=== PATIENT | female | born 1970 | race African-American/Black ===

== ENCOUNTER 2019-05-13 08:27 | Emergency (ER) | payer BC ==
[2019-05-13 08:37] VITALS: BP 108/63; PULSE 76; TEMP 97.4; BMI 26.5
--- NOTE | 2019-05-13 10:02 | PDOC ---
History of Present Illness - General History Source: Patient - History of Present Illness Timing/Duration: reports: getting worse Abdominal Pain Onset Location: reports: RUQ Pain Radiation: reports: flank <Saadia Yee - Last Filed: 05/13/19 12:30> <Mark Anthony Weinstein - Last Filed: 05/13/19 16:09> - General Chief Complaint: Pain Stated Complaint: ABD. PAIN Time Seen by Provider: 05/13/19 09:11 Past History - Psycho Social/Smoking Cessation Hx Smoking History: Never smoked Hx Alcohol Use: No Drug/Substance Use Hx: No <Saadia Yee - Last Filed: 05/13/19 12:30> Review of Systems - Review of Systems Constitutional: No: Chills, Fever ABD/GI: Yes: Nausea. No: Diarrhea, Vomiting : Yes: Flank Pain. No: Burning, Dysuria, Discharge, Hematuria <Saadia Yee - Last Filed: 05/13/19 12:30> *Physical Exam - Vital Signs Last Vital Signs Temp Pulse Resp BP Pulse Ox 97.4 F L 76 17 108/63 100 05/13/19 08:33 05/13/19 08:33 05/13/19 08:33 05/13/19 08:33 05/13/19 08:33 - Physical Exam General Appearance: Yes: Appropriately Dressed. No: Apparent Distress HEENT: positive: Normal Voice Neck: positive: Supple Respiratory/Chest: negative: Respiratory Distress Gastrointestinal/Abdominal: positive: Tender (minimal poorly localized ttp to R abd, neg murpheys, neg CVAT), Soft Musculoskeletal: negative: Normal Inspection Integumentary: positive: Dry, Warm Neurologic: positive: Fully Oriented, Alert, Normal Mood/Affect <Saadia Yee - Last Filed: 05/13/19 12:30> - Vital Signs Last Vital Signs Temp Pulse Resp BP Pulse Ox 97.4 F L 76 17 108/63 100 05/13/19 08:33 05/13/19 08:33 05/13/19 08:33 05/13/19 08:33 05/13/19 08:33 <Mark Anthony Weinstein - Last Filed: 05/13/19 16:09> ED Treatment Course - LABORATORY CBC & Chemistry Diagram: 05/13/19 10:30 05/13/19 10:30 <Saadia Yee - Last Filed: 05/13/19 12:30> - LABORATORY CBC & Chemistry Diagram: 05/13/19 10:30 05/13/19 10:30 - ADDITIONAL ORDERS Additional order review: Laboratory Results 05/13/19 05/13/19 05/13/19 11:29 10:30 10:30 Sodium 141 Potassium 4.0 Chloride 110 H Carbon Dioxide 25 Anion Gap 6 L BUN 10.7 Creatinine 0.8 Est GFR (CKD-EPI)AfAm 101.75 Est GFR (CKD-EPI)NonAf 87.79 Random Glucose 111 H Calcium 8.6 Total Bilirubin 0.3 AST 13 L ALT 16 Alkaline Phosphatase 77 Total Protein 7.1 Albumin 3.4 Lipase 71 L Serum , Qual Negative Urine Color Yellow Urine Appearance Clear Urine pH 6.5 Ur Specific [place] 1.032 Urine Protein Negative Urine Glucose (UA) Negative Urine Ketones Negative Urine Blood Negative Urine Nitrite Negative Urine Bilirubin Negative Urine Urobilinogen 0.2 Ur Leukocyte Esterase Negative 05/13/19 10:30 RBC 4.46 MCV 74.8 L MCHC 33.0 RDW 17.7 H MPV 8.1 Neutrophils % 48.0 Lymphocytes % 41.2 H Monocytes % 8.3 Eosinophils % 2.0 Basophils % 0.5 <Mark Anthony Weinstein - Last Filed: 05/13/19 16:09> Medical Decision Making - Medical Decision Making 05/13/19 09:43 48 yo F, pre-DM, not on meds, p/w RUQ pain , r/t back x 2 weeks , worse 3 days ago, constant. No a/w food or excessive belching. Reports nausea, no vomiting, change in bowel movements fever, chills, dysuria or hematuria. Possible history of kidney stones in the past per patient. No history of gallstones. No history of similar pain see exam Biliary colic vs stone, less likely uti/pyelo, gastritis, pancreatitis or appy Exam remarkable for poorly localized tenderness to right side of abdomen -pain control -labs -US 05/13/19 12:30 Labs, UA and ultrasound unremarkable. No significant pain at this time and not requiring pain meds in ED. Will dc with PMD follow-up <Saadia Yee - Last Filed: 05/13/19 12:30> - Medical Decision Making 05/13/19 16:09 I reviewed the case of the mid-level practitioner and was available for consultation while in the emergency department <Mark Anthony Weinstein - Last Filed: 05/13/19 16:09> Discharge - Discharge Information Problems reviewed: Yes <Saadia Yee - Last Filed: 05/13/19 12:30> <Mark Anthony Weinstein - Last Filed: 05/13/19 16:09> - Discharge Information Clinical Impression/Diagnosis: RUQ pain Condition: Improved Disposition: HOME - Follow up/Referral Referrals: Nicholas Muir [Primary Care Provider] - - Patient Discharge Instructions Patient Printed Discharge Instructions: DI for Abdominal Pain-Adult Additional Instructions: The cause of your pain is unclear at this time as your labs urine and ultrasound were all normal If pain persist, please follow-up with your PMD - Post Discharge Activity Work/Back to School Note: Back to Work
[2019-05-13 10:57] LABS: BASO % 0.5 % (0-2.0); HEMATOCRIT 33.4 % (32.4-45.2); LYMPH % 41.2 % (8-40); MCH 24.7 pg (25.7-33.7); MEAN CELL VOLUME 74.8 fl (80-96); MEAN PLT VOLUME 8.1 fl (7.5-11.1); MONO % 8.3 % (3.8-10.2); PLATELET COUNT 249 K/MM3 (134-434); RBC 4.46 M/mm3 (3.60-5.2); RDW 17.7 % (11.6-15.6); WHITE BLOOD COUNT 4.3 K/mm3 (4.0-10.0)
[2019-05-13 11:16] LABS: ALBUMIN 3.4 g/dl (3.4-5.0); BILIRUBIN,TOTAL 0.3 mg/dL (0.2-1); BLOOD UREA NITROGEN 10.7 mg/dL (7-18); CALCIUM 8.6 mg/dL (8.5-10.1); CREATININE 0.8 mg/dL (0.55-1.3); TOT PROT 7.1 g/dl (6.4-8.2)
[2019-05-13 12:19] LABS: PH,URINE 6.5 (5.0-8.0); URINE APPEARANCE CLEAR; URINE BILIRUBIN NEGATIVE (NEGATIVE); URINE COLOR YELLOW; URINE GLUCOSE (UA) NEGATIVE (NEGATIVE); URINE KETONE NEGATIVE (NEGATIVE); URINE LEUK ESTERASE NEGATIVE (NEGATIVE); URINE NITRITE NEGATIVE (NEGATIVE); URINE PROTEIN NEGATIVE (NEGATIVE); URINE UROBILINOGEN 0.2 mg/dL (0.2-1.0)
== END 2019-05-13 12:55 | disposition home or self-care (01) ==
LOC: JER 08:27
DX: R10.11 Right upper quadrant pain (principal); R73.03 Prediabetes
CPT/HCPCS: 36415; 76700-TC; 80053; 81003; 83690; 84703; 85025; 99284-25

== ENCOUNTER 2021-05-14 16:40 | Emergency (ER) | payer BC ==
[2021-05-14 16:45] VITALS: BP 121/64; PULSE 76; TEMP 97.8; BMI 23.2
[2021-05-14] MEDS ORDERED: ASPIRIN 81 MG CHEWABLE TABLETS PO ONE (18:09)
[2021-05-14] MEDS ORDERED: SODIUM CHLORIDE 1,000 ML IV STA (18:09)
[2021-05-14] MEDS ORDERED: METHOCARBAMOL 500 MG TABLET PO ONE (18:10)
[2021-05-14] MEDS ORDERED: ASPIRIN 81 MG CHEWABLE TABLETS ONE (19:09)
[2021-05-14] MEDS ORDERED: METHOCARBAMOL 500 MG TABLET ONE (19:09)
[2021-05-14 19:53] LABS: BASO % 0.6 % (0-2.0); EOS % 1.7 % (0-4.5); HEMATOCRIT 37.3 % (32.4-45.2); HEMOGLOBIN 12.3 GM/dL (10.7-15.3); LYMPH % 43.6 % (8-40); MCH 27.9 pg (25.7-33.7); MEAN CELL VOLUME 84.6 fl (80-96); NEUT % 46.1 % (42.8-82.8); PLATELET COUNT 256 10^3/uL (134-434); RBC 4.41 M/mm3 (3.60-5.2); RDW 14.4 % (11.6-15.6); WHITE BLOOD COUNT 4.6 K/mm3 (4.0-10.0)
[2021-05-14 20:00] LABS: INR 1.11 (0.83-1.09); PROTHROMBIN TIME (PATIENT) 12.8 SEC (9.7-13.0)
[2021-05-14 20:03] LABS: ACTIVATED PTT 27.9 SECONDS (25.2-36.5)
[2021-05-14 20:09] LABS: CALCIUM 9.2 mg/dL (8.5-10.1)
[2021-05-14 20:10] LABS: ALBUMIN 3.8 g/dl (3.4-5.0); BLOOD UREA NITROGEN 11.7 mg/dL (7-18); MAGNESIUM 2.1 mg/dL (1.8-2.4)
[2021-05-14 20:13] LABS: CREATININE 0.7 mg/dL (0.55-1.3)
[2021-05-14 20:14] LABS: BILIRUBIN,TOTAL 0.3 mg/dL (0.2-1); TOT PROT 7.7 g/dl (6.4-8.2)
== END 2021-05-14 21:46 | disposition home or self-care (01) ==
LOC: JER 16:40
PROC: 3E0337Z Introduction of Electrolytic and Water Balance Substance into Peripheral Vein, Percutaneous Approach (ICD-10-PCS; principal; 2021-05-14)
DX: R07.89 Other chest pain (principal); M62.838 Other muscle spasm
CPT/HCPCS: 36415; 71046-TC-FY; 80053; 83735; 84484; 85025; 85610; 85730; 93005; 93010; 99285-25

== ENCOUNTER 2021-05-28 16:12 | Emergency (ER) | payer BC ==
[2021-05-28 16:18] VITALS: BP 123/78; PULSE 79; TEMP 98; BMI 23.8
[2021-05-28 17:26] LABS: BASO % 0.4 % (0-2.0); EOS % 1.4 % (0-4.5); HEMOGLOBIN 12.7 GM/dL (10.7-15.3); LYMPH % 48.7 % (8-40); MCH 28.2 pg (25.7-33.7); MCHC 33.6 g/dl (32.0-36.0); MONO % 9.5 % (3.8-10.2); PLATELET COUNT 230 10^3/uL (134-434); RBC 4.52 M/mm3 (3.60-5.2); RDW 14.6 % (11.6-15.6); WHITE BLOOD COUNT 4.6 K/mm3 (4.0-10.0)
[2021-05-28 17:35] LABS: INR 1.11 (0.83-1.09); PROTHROMBIN TIME (PATIENT) 12.8 SEC (9.7-13.0)
[2021-05-28 17:38] LABS: ACTIVATED PTT 27.8 SECONDS (25.2-36.5)
[2021-05-28 17:46] LABS: CALCIUM 8.9 mg/dL (8.5-10.1)
[2021-05-28 17:47] LABS: ALBUMIN 3.8 g/dl (3.4-5.0); BLOOD UREA NITROGEN 15.1 mg/dL (7-18); MAGNESIUM 1.8 mg/dL (1.8-2.4)
[2021-05-28 17:48] LABS: CHOLESTEROL 183 mg/dL (50-200); TRIGLYCERIDES 41 mg/dL (0-150)
[2021-05-28 17:49] LABS: CREATININE 0.7 mg/dL (0.55-1.3); LDL CHOLESTEROL (ONLY SJRH) 110 mg/dL (5-100)
[2021-05-28 17:51] LABS: BILIRUBIN,TOTAL 0.2 mg/dL (0.2-1); HDL CHOLESTEROL 67 mg/dL (40-60); TOT PROT 7.3 g/dl (6.4-8.2)
== END 2021-05-28 22:12 | disposition home or self-care (01) ==
LOC: JER 16:12
DX: R93.1 Abnormal findings on diagnostic imaging of heart and coronary circulation (principal)
CPT/HCPCS: 36415; 71046-TC-FY; 71275-TC; 80053; 80061; 83036; 83735; 84443; 84484; 84703; 85025; 85610; 85730; 93005; 93010; 99285-25; Q9967